=== PATIENT | male | born 1950 | race Caucasian/White ===

== ENCOUNTER 2017-05-31 18:43 | Emergency (ER) | payer MEDICARE, OTHER ==
[~2017-05-31] VITALS: Ht 198.1 cm; Wt 131.8 kg
[2017-05-31 18:48] VITALS: BP 82/47; PULSE 50; RESP 16; O2SAT 97
[2017-05-31 19:07] VITALS: BP 101/53; PULSE 61; RESP 18; O2SAT 94
[2017-05-31 19:54] LABS: Mean Corpuscular Hemoglobin 30.5 pg (27.0-35.0); Mean Corpuscular Volume 93.2 fL (81-100)
[2017-05-31 20:00] VITALS: BP 118/64; PULSE 73; RESP 20; O2SAT 95
[2017-05-31 21:02] VITALS: BP 130/63; PULSE 81; RESP 22; O2SAT 95
--- NOTE | 2017-05-31 21:08 | ED.REPORT ---
HPI-Extremity Problem Lower Date of Service May 31, 2017 ED Provider: Chace Silvestre MD Pt is a 67 y/o male who presents to the ED c/o a laceration to his left lowe onset prior to arrival. He states that he was picking a scab on his leg when blood started "spraying out" several inches. He covered it with gauze and viraj wrap at home, and blood was seeping through the dressing on arrival. Additional symptoms include lightheadedness and dizziness. He denies LOC, headache, numbness/tingling, nausea, vomiting, or any other symptoms. Nursing Notes Stated Complaint: PICKED SCAB,BLOOD SQUIRTED OUT OF LEG Chief Complaint: Extremity Trauma Nursing Notes Reviewed: Yes Allergies: Coded Allergies: codeine (Verified Allergy, Severe, 05/31/17) General Time Seen by MD: 21:07 Chief Complaint Other (Laceration to left lowe) Hx Obtained From: Patient Arrived By: Walk-in Onset Occurred: Just prior to arrival Symptom Duration: Constant Location: : Leg left Quality: Painful Severity: Current: Mild Severity: Maximum: Moderate Recent Healthcare: No recent doctor visit, No recent hospitalization Similar Sx Previous: No Past Medical History Past Medical History Anxiety Depression Sleep apnea Past Surgical History Arthroscopic right knee Right ankle Social History Alcohol Use: "Social" Other Social History: Ambulatory Status Independent Review of Systems Laceration to left lowe Neurologic: Reports: Dizziness, Lightheaded, Denies: Change LOC, Headache, Numbness Complete sys rev & neg: except as marked. GI: Denies: Nausea, Vomiting Physical Exam Initial Vital Signs Vital Signs (First) Date Time Temp Pulse Resp B/P Pulse Ox O2 Delivery O2 Flow Rate FiO2 05/31/17 18:48 36.9 50 16 82/47 97 Room Air Initial VS: Reviewed Head / Eyes: Atraumatic, Normocephalic Neck: Supple, Full range of motion Respiratory: No respiratory distress Abdomen / GI: Soft, Non-tender Upper Extremities: Vascular intact, Neuro intact, No swelling, No tenderness Skin: Warm, Dry, No cyanosis Neurologic: Alert, Oriented, Nonfocal Psychiatric: Mood/affect normal, Behavior normal, Normal thought content Lower Extremity / Pelvis / MS: Full range of motion, No swelling Multiple varicosities on anterior surface of lowe Pulsatile bleeding Ankle / Foot: Neurologic intact, Vascular intact General/Constitutional: Awake, Alert Interpretation & Diagnostics Lab Results Interpretation Result Diagram: 05/31/17194405/31/171944 Test 05/31/17 19:45 White Blood Count 5.3th/mm3 (3.8-10.1) Red Blood Count 4.72mil/mm3 (4.40-5.80) Hemoglobin 14.4g/dL (13.8-17.2) Hematocrit 44.0% (41.0-50.0) Mean Corpuscular Volume 93.2fL (81-100) Mean Corpuscular Hemoglobin 30.5pg (27.0-35.0) Mean Corpuscular Hemoglobin Concent 32.7% (32.0-37.0) Red Cell Distribution Width 13.1% (12.3-15.4) Platelet Count 153bil/L (150-400) Sodium Level 138mEq/L (134-144) Potassium Level 4.2mEq/L (3.5-5.2) Chloride Level 101mEq/L (97-108) Carbon Dioxide Level 25mmol/L (18-29) Blood Urea Nitrogen 15mg/dL (8-27) Creatinine 1.03mg/dL (0.76-1.27) Estimat Glomerular Filtration Rate 76mL/min (>59) Glucose Level 133mg/dL (60-99) Calcium Level 8.5mg/dL (8.5-10.1) Total Bilirubin 0.2mg/dL (0.0-1.2) Aspartate Amino Transf (AST/SGOT) 21U/L (0-50) Alanine Aminotransferase (ALT/SGPT) 17U/L (0-44) Alkaline Phosphatase 67U/L (25-160) Total Protein 6.6g/dL (6.4-8.4) Albumin 3.6g/dL (3.4-5.0) Hold Looney Top Tube Received (Received) Procedures Laceration Management Laceration Management: Figure-8 suture Time: 21:32 Procedure Performed by: ED physician Consent / Setup / Site Prep: Informed consent provided, Consent from patient , Time-out performed, Hand hygiene observed Location of Wound: Left anterior lowe 2 mm Local Anesthesia: Lidocaine 1% Digital Block: No Wound Preparation: Hibiclens - Chlorhexidine Debridement: None Repair Skin: ___ O (4), Nylon # Sutures - Skin: 1 Post-Procedure / Complications: Antibiotic oint applied, Dressing applied, No complications, Condition improved, Tolerated procedure well, Patient stable Re-Eval/Medical Decision Med Decision/Clinical Course 67-year-old managed picked the top off a venous Bose AV malformation on his leg with subsequent pulsatile bleeding. It is quite a substantial bleeder after removal of his compression dressing, with a 2 mm internal diameter pulsatile bleed resulting in solid volume being ejected. This was controlled initially with pressure cleanse with X Harini and a single [id number] suture applied to control the bleeding. This is been successful and he is discharged now in improved condition. Source of Hx: Old records Re-Evaluation/Progress : Time of Eval: 21:41 Re-Evaluation/Progress Note: Performed laceration management procedure. Discussed plan for discharge. Patient understands and agrees with plan. F/U instructions and RTER warnings given. All questions addressed at this time. Counseled Regarding: Diagnosis, Lab results, Need for follow-up, When/why to return to ED Discharge & Departure Impression: Primary Impression: Arteriovenous malformation Disposition: Home Discharge Condition All VS Reviewed: Yes Condition: Stable Patient Instructions: Care For Your Stitches (ED), Stitches Removal (ED) Additional Instructions: Leave the Viraj wrap on for about an hour and remove it. Leave the internal wrapping alone. You can take that off tomorrow and begin dressing this with bacitracin ointment and a bandage to the wound three times daily. You may shower or bathe commencing tomorrow. Avoid prolonged soaking. Return day seven for suture removal here. Early to mid morning are the best times generally. Referrals: Janett Sanches MD (PCP) Scribe Attestation Portions of this note were transcribed by Cheri Meza. I, Dr. Silvestre, personally performed the history, physical exam and medical decision-making; I reviewed and confirmed the accuracy of the information in the transcribed note. copies to: Janett Sanches MD, Christopher W MD May 31, 2017 21:08 Cheri Meza May 31, 2017 21:33
== END 2017-05-31 22:10 | disposition home or self-care (01) ==
LOC: SED 18:43
DX: S81.812A Laceration without foreign body, left lower leg, initial encounter (principal); X58.XXXA Exposure to other specified factors, initial encounter; Y93.89 Activity, other specified; Y92.89 Other specified places as the place of occurrence of the external cause; Y99.8 Other external cause status; Q27.32 Arteriovenous malformation of vessel of lower limb; R42 Dizziness and giddiness; F41.8 Other specified anxiety disorders; Z98.890 Other specified postprocedural states; Z88.5 Allergy status to narcotic agent

== ENCOUNTER 2017-06-08 06:32 | Emergency (ER) | payer MEDICARE, OTHER ==
[2017-06-08 06:42] VITALS: BP 122/72; PULSE 64; RESP 20; O2SAT 97
== END 2017-06-08 06:51 | disposition home or self-care (01) ==
LOC: SED 06:32
DX: Z48.02 Encounter for removal of sutures (principal)